=== PATIENT | male | born 1985 | race Caucasian/White ===

== ENCOUNTER 2020-02-11 03:28 | Emergency (ER) | payer OTHER, SELFPAY ==
[2020-02-11] MEDS ORDERED: Lidocaine 1% 20 ML MDV ONE (04:03)
[2020-02-11] MEDS ORDERED: cefTRIAXone\\ROCEPHIN 1 GM VIAL ONE (04:03)
== END 2020-02-11 04:37 | disposition home or self-care (01) ==
LOC: MADERS 03:28
DX: H66.42 Suppurative otitis media, unspecified, left ear (principal); G43.909 Migraine, unspecified, not intractable, without status migrainosus; F17.220 Nicotine dependence, chewing tobacco, uncomplicated
CPT/HCPCS: 96372; 99282; J0696; J2001

== ENCOUNTER 2021-12-07 17:24 | Outpatient (CLI) | payer OTHER ==
[2021-12-07 18:03] LABS: #Basophils 0.1 thou/uL (0.0-0.2); #Eosinphils 0.1 thou/uL (0.0-0.7); #Lymphocytes 3.3 thou/uL (1.20-3.40); #Monocytes 0.7 thou/uL (0.11-0.59); #Neutrophils 3.8 thou/uL (1.40-6.50); %Basophils 1.4 % (0.0-1.0); %Eosinophils 0.8 % (0.0-10.0); %Lymphocytes 41.4 % (21.0-51.0); %Monocytes 8.6 % (0.0-10.0); %Neutrophils 47.9 % (42.0-75.0); Hemoglobin 14.1 g/dL (14.0-18.0); Mean Corpuscular HGB CONC 32.3 g/dL (32.0-36.0); Mean Corpuscular Hemoglobin 28.6 pg (27.0-31.0); Mean Corpuscular Volume 88.6 fL (78.0-98.0); Mean Platelet Volume 7.2 fL (7.4-10.4); Platelet Count 238 thou/uL (130-400); RBC Distribution Width 12.2 % (11.5-14.5); Red Blood Cell (RBC) Count 4.92 mill/uL (4.70-6.10)
[2021-12-07 18:10] LABS: ALT (SGPT) 63 U/L (8-55); AST (SGOT) 45 U/L (5-34); Albumin 4.7 g/dL (3.5-5.0); Alkaline Phosphatase 70 U/L (40-110); Anion Gap 15 mmol/L (10-20); BUN (Urea Nitrogen) 15 mg/dL (8.9-20.6); Bilirubin, Total 0.7 mg/dL (0.2-1.2); Calc. Creatinine Clearance 0 mL/min (70-130); Calcium 9.6 mg/dL (7.8-10.44); Carbon Dioxide 27 mmol/L (22-29); Cardiac Risk 5.7 (Less than 4.5); Chloride 104 mmol/L (98-107); Cholesterol 223 mg/dl (< 200 Desired); Estimated GFR 109; Globulin 3.3 g/dL (2.4-3.5); Glucose 93 mg/dL (70-105); HDL Cholesterol 39 mg/dL (>60 Neg Risk); LDL Cholesterol, Calculated 162 mg/dL; Potassium 4.7 mmol/L (3.5-5.1); Sodium 141 mmol/L (136-145); Triglycerides 112 mg/dL (Less than 150)
[2021-12-07 22:16] LABS: Hemoglobin A1c 5.5 % (4.0-6.0)
== END 2021-12-07 17:25 | disposition home or self-care (01) ==
LOC: MADLAB 17:24
PROVIDERS: ATTEND Family Medicine
DX: Z00.01 Encounter for general adult medical examination with abnormal findings (principal); Z83.3 Family history of diabetes mellitus
CPT/HCPCS: 36415; 80053; 80061; 83036; 85025

== ENCOUNTER 2022-04-13 20:37 | Emergency (ER) | payer OTHER, SELFPAY ==
[2022-04-13] MEDS ORDERED: Neomycin/Polymyxin/HC Otic Solution 10 ML BOT ONE (21:07)
== END 2022-04-13 21:57 | disposition home or self-care (01) ==
LOC: MADERS 20:37
DX: H60.91 Unspecified otitis externa, right ear (principal); R59.0 Localized enlarged lymph nodes; F17.220 Nicotine dependence, chewing tobacco, uncomplicated
CPT/HCPCS: 36416; 99283

== ENCOUNTER 2023-07-22 10:19 | Emergency (ER) | payer SELFPAY ==
[2023-07-22] MEDS ORDERED: Ondansetron ODT 4 MG TAB ONE (11:35)
== END 2023-07-22 12:18 | disposition home or self-care (01) ==
LOC: MADERS 10:19
DX: J06.9 Acute upper respiratory infection, unspecified (principal); F17.220 Nicotine dependence, chewing tobacco, uncomplicated
CPT/HCPCS: 87635; 87804; 99284; Q0162